=== PATIENT | male | born 1960 | race Hispanic/Latino ===

== ENCOUNTER 2020-06-08 08:26 | Outpatient (CLI) | payer OTHER ==
--- NOTE | 2020-06-08 09:20 | XRay Report ---
LEFT HAND 2 VIEW(S) INDICATION / CLINICAL INFORMATION: LT HAND PAIN COMPARISON: None available. FINDINGS: BONES / JOINT(S): No acute fracture or subluxation. No significant arthritis. SOFT TISSUES: No significant abnormality. ADDITIONAL FINDINGS: None. IMPRESSION: No acute osseous abnormality. Signer Name: Chris Wright MD Signed: 06/08/2020 9:15 AM Workstation Name: [id number]
--- NOTE | 2020-06-08 09:20 | XRay Report ---
Lumbar spine 3 views INDICATION: Low back pain. IMPRESSION: Multilevel discogenic and facet arthropathy throughout the mid and lower lumbar spine par ticularly at L5-S1 where there is mild to moderate bilateral neural foraminal stenosis. Signer Name: Sonu Sharp MD Signed: 06/08/2020 9:16 AM Workstation Name: [id number]
--- NOTE | 2020-06-08 09:20 | XRay Report ---
Pelvis with bilateral hips 3 views INDICATION: Bilateral hip pain IMPRESSION: No fracture or subluxation identified. Minimal to mild degenerative changes of both hips. Signer Name: Sonu Sharp MD Signed: 06/08/2020 9:16 AM Workstation Name: [id number]
== END 2020-06-08 08:27 | disposition home or self-care (01) ==
LOC: XRAY 08:26
PROVIDERS: ATTEND Internal Medicine
DX: M16.0 Bilateral primary osteoarthritis of hip (principal); M25.552 Pain in left hip; M25.551 Pain in right hip; M48.07 Spinal stenosis, lumbosacral region; M47.817 Spondylosis without myelopathy or radiculopathy, lumbosacral region
CPT/HCPCS: 72100; 73521

== ENCOUNTER 2020-08-26 12:18 | Emergency (ER) | payer SELFPAY ==
[2020-08-26 12:38] VITALS: BP 169/92
--- NOTE | 2020-08-26 13:00 | Emergency Department Report ---
Minor Respiratory - [facility] Chief Complaint: Upper Respiratory Infection Stated Complaint: POSS FLU Duration: 1 Day Pain Location: Throat Minor Respiratory: Yes Rhinorrhea, Yes Sore Throat, Yes Able to Tolerate Fluids, Yes Cough, Yes Fever Other History: 59-year-old male presents with a 1 day history of body aches, sore throat headache diarrhea and fatigue. Patient reports he is a start ed 1 day ago. 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 Patient states that he last saw cancer doctor was 3 months ago and he is followed at [facility] and's [facility] Dr. Quintero. Patient reports he has not had a Covid test. Patient last took ibuprofen about 1130. ED Review of Systems ROS: Stated complaint: POSS FLU Other details as noted in HPI ED Past Medical Hx - Past Medical History Previous Medical History?: Yes Hx Hypertension: Yes Hx Arthritis: Yes (osteoporosis) - Social History Smoking Status: Current Every Day Smoker (2/3 pack per day) Substance Use Type: Cocaine, Heroin, Marijuana, Methamphetamines - Medications Home Medications: Home Medications Medication Instructions Recorded Confirmed Last Taken Type lisinopriL [Zestril] 20 mg PO QDAY 07/20/19 07/20/19 Unknown History Amoxicillin [Amoxicillin TAB] 875 mg PO BID #14 tablet 08/26/20 Unknown Rx Azithromycin [Zithromax Z-IMELDA] 250 mg PO DAILY #6 tab 08/26/20 Unknown Rx Minor Respiratory Exam - Exam General: Vital signs noted. No distress. Alert and acting appropriately. HEENT: Yes Moist Mucous Membranes, No Pharyngeal Erythema, No Pharyngeal Exudates, No Rhinorrhea, No Conjuctival Injection, No Frontal Tenderness, No Maxillary Tenderness Neck: Yes Supple, No Adenopathy Lungs: Yes Good Air Exchange, No Wheezes, No Ronchi, No Stridor, No Cough, No Labored Respirations, No Retractions, No Use of Accessory Muscles, No Other Abnormal Lung Sounds Heart: Yes Regular, No Murmur Abdomen: Yes Normal Bowel Sounds, No Tenderness, No Peritoneal Signs Skin: No Rash, No Edema Neurologic: Alert and oriented, no deficits. Musculoskeletal: Unremarkable. ED Course Vital Signs 08/26/20 12:37 Temperature 98.4 F Pulse Rate 79 Respiratory 15 Rate Blood Pressure 169/92 O2 Sat by Pulse 97 Oximetry ED Medical Decision Making - Lab Data Result diagrams: 08/26/20 13:34 08/26/20 13:34 - Radiology Data Radiology results: report reviewed Patient: LIANA LONG MR#: [id number] : 1960 Acct:[id number] Age/Sex: 59 / M ADM Date: 08/26/20 Loc: ED Attending Dr: Ordering Physician: CHRISTAL DELAROSA Date of Service: 08/26/20 Procedure(s): XR chest routine 2V Accession Number(s): [id number] cc: CHRISTAL DELAROSA Fluoro Time In Minutes: CHEST 2 VIEWS INDICATION / CLINICAL INFORMATION: flu like sxs. FINDINGS: SUPPORT DEVICES: None. HEART / MEDIASTINUM: No significant abnormality. LUNGS / PLEURA: There is some increasing airspace density within the medial aspect of the right upper lung which was not seen on the prior exam on 07/18/2019. The left lung remains clear. Signer Name: Sonu Sharp MD Signed: 08/26/2020 1:26 PM Workstation Name: [id number] Transcribed By: BC Dictated By: Sonu Sharp MD Electronically Authenticated By: Sonu Sharp MD Signed Date/Time: 08/26/20 1326 DD/ 1324 TD/TT: - Medical Decision Making 59-year-old male presents with a 1 day history of body aches, sore throat headache diarrhea and fatigue. Patient reports he is a started 1 day ago. 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 Patient states that he last saw cancer doctor was 3 months ago and he is followed at [facility] and's [facility] Dr. Quintero. Patient reports he has not had a Covid test. Patient last took ibuprofen about 1130. Critical care attestation.: If time is entered above; I have spent that time in minutes in the direct care of this critically ill patient, excluding procedure time. ED Disposition Clinical Impression: Pneumonia Qualifiers: Pneumonia type: due to unspecified organism Laterality: right Lung location: middle lobe of lung Qualified Code(s): J18.9 - Pneumonia, unspecified organism Disposition: DC-01 TO HOME OR SELFCARE Is pt being admited?: No Does the pt Need Aspirin: No Condition: Stable Instructions: Bacterial Pneumonia (ED), Community-Acquired Pneumonia, Adult, [id number] Additional Instructions: X-ray shows concern for possible pneumonia. I would like for you to complete b oth of the antibiotics as prescribed. Increase your fluid intake Tylenol or ibuprofen for fevers and body aches and to follow-up with your primary care provider. Also recommend for you to get Covid testing. Prescriptions: Amoxicillin [Amoxicillin TAB] 875 mg PO BID #14 tablet Azithromycin [Zithromax Z-IMELDA] 250 mg PO DAILY #6 tab Referrals: [facility] [Provider Group] - 3-5 Days GAB IRBY MD [Staff Physician] - 3-5 Days PRIMARY CAREMD [Primary Care Provider] - 3-5 Days
--- NOTE | 2020-08-26 13:30 | XRay Report ---
CHEST 2 VIEWS INDICATION / CLINICAL INFORMATION: flu like sxs. FINDINGS: SUPPORT DEVICES: None. HEART / MEDIASTINUM: No significant abnormality. LUNGS / PLEURA: There is some increasing airspace density within the medial aspect of the right upper lung which was not seen on the prior exam on 07/18/2019. The left lung remains clear. Signer Name: Sonu Sharp MD Signed: 08/26/2020 1:26 PM Workstation Name: [id number]
[2020-08-26 14:14] LABS: Basophils % (Auto) 0.4 % (0.0-1.8); Eosinophils # (Auto) 0.2 K/mm3 (0.0-0.4); Hematocrit 28.2 % (35.5-45.6); Hemoglobin 9.4 gm/dl (11.8-15.2); Lymphocytes # (Auto) 1.4 K/mm3 (1.2-5.4); Lymphocytes % (Auto) 17.8 % (13.4-35.0); Mean Corpuscular HGB Conc 33 % (32-34); Mean Corpuscular Volume 95 fl (84-94); Monocytes # (Auto) 0.6 K/mm3 (0.0-0.8); Monocytes % (Auto) 7.7 % (0.0-7.3); Platelet Count 344 K/mm3 (140-440); Red Blood Count 2.98 M/mm3 (3.65-5.03); Red Cell Distribution Width 18.4 % (13.2-15.2)
[2020-08-26 14:37] LABS: Alanine Aminotransferase 7 units/L (7-56); Albumin 3.5 g/dL (3.9-5); Blood Urea Nitrogen 21 mg/dL (9-20); Calcium 8.5 mg/dL (8.4-10.2); Hemolysis Index 1
[2020-08-26 15:01] LABS: BUN/Creatinine Ratio 30
== END 2020-08-26 16:37 | disposition home or self-care (01) ==
LOC: ED 12:18
DX: J18.9 Pneumonia, unspecified organism (principal); I10 Essential (primary) hypertension; M19.90 Unspecified osteoarthritis, unspecified site; F12.90 Cannabis use, unspecified, uncomplicated; F14.90 Cocaine use, unspecified, uncomplicated; F15.90 Other stimulant use, unspecified, uncomplicated; F17.200 Nicotine dependence, unspecified, uncomplicated; F11.90 Opioid use, unspecified, uncomplicated; Z79.899 Other long term (current) drug therapy
CPT/HCPCS: 36415; 71046; 80053; 85025

== ENCOUNTER 2020-10-15 15:35 | Emergency (ER) | payer OTHER ==
--- NOTE | 2020-10-15 17:35 | Event Note ---
ED Screening Note ED Screening Note: hx of osteoarthritis and leukemia (in remission), HTN, PUD states he was supposed to have a iron infusion 3 weeks ago but due to monetary issues was unable +cough +headache +generalized body aches, generalized joint pain no fever no n/v +diarrhea no SOB no abd pain no allergies to meds This initial assessment/diagnostic orders/clinical plan/treatment(s) is/are subject to change based on patients health status, clinical progression and re- assessment by fellow clinical providers in the ED. Further treatment and workup at subsequent clinical providers discretion. Patient/guardian urged not to elope from the ED as their condition may be serious if not clinically assessed and managed. Initial orders include: labs, CXR
--- NOTE | 2020-10-15 18:01 | XRay Report ---
CHEST 2 VIEWS INDICATION / CLINICAL INFORMATION: cough. COMPARISON: Chest 2 views from 08/26/2020. FINDINGS: SUPPORT DEVICES: None. HEART / MEDIASTINUM: No significant abnormality. LUNGS / PLEURA: The recently described right upper lobe airspace opacity has improved. The lungs are otherwise clear. No significant pleural effusion. No pneumothorax. ADDITIONAL FINDINGS: No significant additional findings. IMPRESSION: Improved aeration of the right upper lobe without other significant abnormalities. Signer Name: Lv Florence MD Signed: 10/15/2020 5:57 PM Workstation Name: [id number]
[2020-10-15 18:22] LABS: Basophils % (Auto) 0.6 % (0.0-1.8); Eosinophils # (Auto) 0.1 K/mm3 (0.0-0.4); Eosinophils % (Auto) 1.6 % (0.0-4.3); Hematocrit 28.7 % (35.5-45.6); Hemoglobin 9.6 gm/dl (11.8-15.2); Lymphocytes # (Auto) 1.4 K/mm3 (1.2-5.4); Lymphocytes % (Auto) 24.2 % (13.4-35.0); Mean Corpuscular HGB Conc 34 % (32-34); Mean Corpuscular Volume 94 fl (84-94); Monocytes # (Auto) 0.3 K/mm3 (0.0-0.8); Platelet Count 413 K/mm3 (140-440); Red Blood Count 3.05 M/mm3 (3.65-5.03); Red Cell Distribution Width 19.6 % (13.2-15.2)
[2020-10-15 18:28] LABS: Alanine Aminotransferase 15 units/L (7-56); Albumin 4.2 g/dL (3.9-5); Blood Urea Nitrogen 22 mg/dL (9-20); Calcium 8.7 mg/dL (8.4-10.2); Hemolysis Index 0
[2020-10-15 18:41] LABS: BUN/Creatinine Ratio 31
[2020-10-15 21:32] VITALS: BP 136/93
--- NOTE | 2020-10-15 22:03 | Emergency Department Report ---
ED General Adult HPI - General Chief complaint: Pain General Stated complaint: COUGH/BODY ACHES Time Seen by Provider: 10/15/20 17:34 Source: patient Mode of arrival: Ambulatory Limitations: No Limitations - History of Present Illness Initial comments: 60-year-old male, history of osteoarthritis, CML leukemia, hypertension, presents to ED with joint pain. Patient states he is having pain in all of his joints all over his body. Patient states he is scheduled to see her [employer] next month. Patient also thinks it may be due to the fact that lashay hendricks was was having iron infusion 3 weeks ago but was unable to secondary to his finances. Patient denies any fever. Patient also reports a mild cough, denies any shortness of breath. -: unknown Radiation: non-radiation Severity scale (0 -10): 0 Quality: aching Consistency: intermittent Improves with: none Worsens with: none Associated Symptoms: cough. denies: fever/chills, nausea/vomiting, shortness of breath - Related Data Home Medications Medication Instructions Recorded Confirmed Last Taken lisinopriL [Zestril] 20 mg PO QDAY 07/20/19 07/20/19 Unknown Previous Rx's Medication Instructions Recorded Last Taken Type Amoxicillin [Amoxicillin TAB] 875 mg PO BID #14 tablet 08/26/20 Unknown Rx Azithromycin [Zithromax Z-IMELDA] 250 mg PO DAILY #6 tab 08/26/20 Unknown Rx Naproxen [Naprosyn] 500 mg PO BID #20 tablet 10/15/20 Unknown Rx Allergies Allergy/AdvReac Type Severity Reaction Status Date / Time No Known Allergies Allergy Verified 10/15/20 17:00 ED Review of Systems ROS: Stated complaint: COUGH/BODY ACHES Other details as noted in HPI Comment: All other systems reviewed and negative Constitutional: denies: chills, fever Respiratory: cough. denies: shortness of breath Gastrointestinal: denies: nausea, vomiting Musculoskeletal: arthralgia ED Past Medical Hx - Past Medical History Hx Hypertension: Yes Hx of Cancer: Yes (LEUKEMINA) Hx Arthritis: Yes (osteoporosis) - Social History Smoking Status: Current Every Day Smoker (2/3 pack per day) Substance Use Type: Cocaine, Heroin, Marijuana, Methamphetamines - Medications Home Medications: Home Medications Medication Instructions Recorded Confirmed Last Taken Type lisinopriL [Zestril] 20 mg PO QDAY 07/20/19 07/20/19 Unknown History Amoxicillin [Amoxicillin TAB] 875 mg PO BID #14 tablet 08/26/20 Unknown Rx Azithromycin [Zithromax Z-IMELDA] 250 mg PO DAILY #6 tab 08/26/20 Unknown Rx Naproxen [Naprosyn] 500 mg PO BID #20 tablet 10/15/20 Unknown Rx ED Physical Exam - General Limitations: No Limitations General appearance: alert, in no apparent distress - Head Head exam: Present: atraumatic, normocephalic - Eye Eye exam: Present: normal appearance, EOMI - ENT ENT exam: Present: mucous membranes moist - Neck Neck exam: Present: normal inspection - Respiratory Respiratory exam: Present: normal lung sounds bilaterally. Absent: respiratory distress - Cardiovascular Cardiovascular Exam: Present: regular rate, normal rhythm - GI/Abdominal GI/Abdominal exam: Present: soft. Absent: distended, tenderness - Extremities Exam Extremities exam: Present: normal inspection. Absent: joint swelling - Neurological Exam Neurological exam: Present: alert, oriented X3 - Psychiatric Psychiatric exam: Present: normal affect, normal mood - Skin Skin exam: Present: warm, dry, intact, normal color. Absent: rash, erythema ED Course Vital Signs 10/15/20 10/15/20 10/15/20 17:04 21:32 22:22 Temperature 98.2 F Pulse Rate 66 69 Respiratory 18 18 18 Rate Blood Pressure 168/90 Blood Pressure 136/93 [Left] O2 Sat by Pulse 100 100 Oximetry ED Medical Decision Making - Lab Data Result diagrams: 10/15/20 17:53 10/15/20 17:53 - Medical Decision Making 60-year-old male presents to ED with complaint of diffuse joint pain. Patient reports history of arthritis. Patient also requesting to have iron infusions done here in the ED as he missed his usual infusion 3 weeks ago. Advised patient that transfusions are not done emergently. Hemoglobin is 9.6, patient does not meet criteria for blood transfusion either. Patient reports he will be following up with his [employer] next month. Patient has no significantly swollen or erythematous joints on exam. Patient will be discharged at this time. Return precautions given. Critical care attestation.: If time is entered above; I have spent that time in minutes in the direct care of this critically ill patient, excluding procedure time. ED Disposition Clinical Impression: Arthralgia, Cough Disposition: DC- TO HOME OR SELFCARE Is pt being admited?: No Condition: Stable Instructions: Joint Pain, [id number] Prescriptions: Naproxen [Naprosyn] 500 mg PO BID #20 tablet Referrals: PRIMARY CARE, [Primary Care Provider] - 3-5 Days Forms: Work/School Release Form(ED) Time of Disposition: 22:02
== END 2020-10-15 22:23 | disposition home or self-care (01) ==
LOC: ED 15:35
DX: M25.50 Pain in unspecified joint (principal); R05 Cough; I10 Essential (primary) hypertension; F17.200 Nicotine dependence, unspecified, uncomplicated; F14.10 Cocaine abuse, uncomplicated; Z79.899 Other long term (current) drug therapy
CPT/HCPCS: 36415; 71046; 80053; 82550; 85025; 99283

== ENCOUNTER 2020-11-01 21:22 | Emergency (ER) | payer OTHER ==
--- NOTE | 2020-11-01 23:10 | XRay Report ---
CHEST PA AND LATERAL VIEWS INDICATION: sob, cough. COMPARISON: 10/15/2020 FINDINGS: Support devices: None. Heart: Within normal limits. Lungs/Pleura: No acute pulmonary or pleural findings. Lungs remain hyperinflated. IMPRESSION: 1. No significant change. Signer Name: Mau Devlin MD Signed: 11/01/2020 11:05 PM Workstation Name: [id number]
--- NOTE | 2020-11-02 01:30 | Emergency Department Report ---
ED General Adult HPI - General Chief complaint: Upper Respiratory Infection Stated complaint: CONJESTION/BODY ACHES Time Seen by Provider: 11/02/20 01:00 Source: patient Mode of arrival: Ambulatory Limitations: No Limitations - History of Present Illness Initial comments: Patient is a 60-year-old male with a history of leukemia. Who presents for head and chest congestion x3 days. Patient denies shortness of breath does endorse productive cough with yellow-green , and sinus and ear pressure. Symptoms are exacerbated by activity and movement. Symptoms are relieved by nothing tried. There is been no fever or chills. No nausea or vomiting. Patient is tolerating p.o. intake. Patient is a 40+ pack year smoker - Related Data Home Medications Medication Instructions Recorded Confirmed Last Taken lisinopriL [Zestril] 20 mg PO QDAY 07/20/19 07/20/19 Unknown Previous Rx's Medication Instructions Recorded Last Taken Type Amoxicillin [Amoxicillin TAB] 875 mg PO BID #14 tablet 08/26/20 Unknown Rx Azithromycin [Zithromax Z-IMELDA] 250 mg PO DAILY #6 tab 08/26/20 Unknown Rx Naproxen [Naprosyn] 500 mg PO BID #20 tablet 10/15/20 Unknown Rx Acetaminophen/Codeine [Tylenol 1 tab PO Q6H PRN #12 tab 11/02/20 Unknown Rx /Codeine # 3 tab] Albuterol Mdi (or & Nicu Only) 2 puff IH QID PRN #8.5 gram 11/02/20 Unknown Rx [ProAir HFA Inhaler] Azithromycin 500 mg PO DAILY #5 tablet 11/02/20 Unknown Rx Azithromycin [Zithromax TAB] 500 mg PO QDAY #5 tablet 11/02/20 Unknown Rx Allergies Allergy/AdvReac Type Severity Reaction Status Date / Time No Known Allergies Allergy Verified 10/15/20 17:00 ED Review of Systems ROS: Stated complaint: CONJESTION/BODY ACHES Other details as noted in HPI Constitutional: malaise Eyes: denies: eye pain, eye discharge, vision change ENT: ear pain, congestion Respiratory: cough. denies: shortness of breath, wheezing Cardiovascular: denies: chest pain, palpitations Endocrine: no symptoms reported Gastrointestinal: denies: abdominal pain, nausea, vomiting, diarrhea Genitourinary: denies: urgency, dysuria, frequency, hematuria Musculoskeletal: denies: back pain, joint swelling, arthralgia Skin: denies: rash, lesions Neurological: headache. denies: weakness, numbness, paresthesias, vertigo Psychiatric: denies: anxiety, depression Hematological/Lymphatic: denies: easy bleeding, easy bruising ED Past Medical Hx - Past Medical History Previous Medical History?: Yes Hx Hypertension: Yes Hx Arthritis: Yes (osteoporosis) Additional medical history: luekemia - Social History Smoking Status: Never Smoker Substance Use Type: None - Medications Home Medications: Home Medications Medication Instructions Recorded Confirmed Last Taken Type lisinopriL [Zestril] 20 mg PO QDAY 07/20/19 07/20/19 Unknown History Amoxicillin [Amoxicillin TAB] 875 mg PO BID #14 tablet 08/26/20 Unknown Rx Azithromycin [Zithromax Z-IMELDA] 250 mg PO DAILY #6 tab 08/26/20 Unknown Rx Naproxen [Naprosyn] 500 mg PO BID #20 tablet 10/15/20 Unknown Rx Acetaminophen/Codeine [Tylenol 1 tab PO Q6H PRN #12 tab 11/02/20 Unknown Rx /Codeine # 3 tab] Albuterol Mdi (or & Nicu Only) 2 puff IH QID PRN #8.5 gram 11/02/20 Unknown Rx [ProAir HFA Inhaler] Azithromycin 500 mg PO DAILY #5 tablet 11/02/20 Unknown Rx Azithromycin [Zithromax TAB] 500 mg PO QDAY #5 tablet 11/02/20 Unknown Rx ED Physical Exam - General Limitations: No Limitations General appearance: alert - Head Head exam: Present: normocephalic, normal inspection - Eye Eye exam: Present: normal appearance, PERRL, EOMI Pupils: Present: normal accommodation - ENT ENT exam: Present: mucous membranes moist - Expanded ENT Exam Expanded Ear exam: Present: normal external inspection Mouth exam: Absent: trismus Teeth exam: Present: normal inspection Throat exam: Positive: tonsillar erythema. Negative: tonsillomegaly, tonsillar exudate, R peritonsillar mass, L peritonsillar mass - Neck Neck exam: Present: normal inspection, full ROM. Absent: tenderness, lymphadenopathy - Respiratory Respiratory exam: Present: normal lung sounds bilaterally, wheezes. Absent: respiratory distress, rales, rhonchi, stridor, chest wall tenderness, prolonged expiratory - Cardiovascular Cardiovascular Exam: Present: regular rate, normal heart sounds - GI/Abdominal GI/Abdominal exam: Present: soft, normal bowel sounds. Absent: distended, tenderness, guarding, rebound, rigid, bruit, hernia, other - Rectal Rectal exam: Present: deferred - exam: Present: other (deferred ) External exam: Present: normal external exam - Extremities Exam Extremities exam: Present: normal inspection, full ROM, normal capillary refill. Absent: tenderness - Back Exam Back exam: Present: normal inspection, full ROM. Absent: tenderness, CVA tenderness (R), CVA tenderness (L), vertebral tenderness - Neurological Exam Neurological exam: Present: alert - Psychiatric Psychiatric exam: Present: normal affect, normal mood - Skin Skin exam: Present: warm, dry, intact, normal color. Absent: rash ED Course Vital Signs 11/01/20 22:15 Temperature 98.0 F Pulse Rate 77 Respiratory 17 Rate Blood Pressure 182/96 O2 Sat by Pulse 99 Oximetry ED Medical Decision Making - Radiology Data Radiology results: report reviewed, image reviewed Ordering Physician: MAIKOL MEEHAN MD Date of Service: 11/01/20 Procedure(s): XR chest routine 2V Accession Number(s): [id number] cc: ED MD ZORAN Fluoro Time In Minutes: CHEST PA AND LATERAL VIEWS INDICATION: sob, cough. COMPARISON: 10/15/2020 FINDINGS: Support devices: None. Heart: Within normal limits. Lungs/Pleura: No acute pulmonary or pleural findings. Lungs remain hyperinflated. IMPRESSION: 1. No significant change. Signer Name: Mau Devlin MD Signed: 11/01/2020 11:05 PM Workstation Name: [id number] Transcribed By: LAKIA Dictated By: Mau Devlin MD Electronically Authenticated By: Mau Devlin MD Signed Date/Time: 11/01/202304 DD/ 04 TD/TT: - Medical Decision Making Chest x-ray no opacities no infiltrate. This is likely bronchitis as symptoms have improved with medications given in ED. There is no fever or chills. Patient is tolerating p.o. intake. Patient is amatory without acute distress or shortness of breath. Plan DC to home with prescriptions. Follow-up with PCP in 2 days. Patient verbalized agreement and understanding with discharge plan. Patient DC'd home in stable condition at this time Critical care attestation.: If time is entered above; I have spent that time in minutes in the direct care of this critically ill patient, excluding procedure time. ED Disposition Clinical Impression: Bronchitis URI (upper respiratory infection) Qualifiers: URI type: unspecified URI Qualified Code(s): J06.9 - Acute upper respiratory infection, unspecified Disposition: DC-01 TO HOME OR SELFCARE Is pt being admited?: No Does the pt Need Aspirin: No Condition: Stable Instructions: Chronic Bronchitis (ED), Viral Respiratory Infection, Xaon-Zz-Inkg Prescriptions: Azithromycin 500 mg PO DAILY #5 tablet Albuterol Mdi (or & Nicu Only) [ProAir HFA Inhaler] 2 puff IH QID PRN #8.5 gram PRN Reason: Shortness Of Breath Acetaminophen/Codeine [Tylenol /Codeine # 3 tab] 1 tab PO Q6H PRN #12 tab PRN Reason: pain cough Azithromycin [Zithromax TAB] 500 mg PO QDAY #5 tablet Referrals: KAMALA BOWERS MD [Staff Physician] - 3-5 Days Forms: Work/School Release Form(ED) Time of Disposition: 01:59
[2020-11-02] MEDS ORDERED: predniSONE 20 MG TAB PO ONE (01:31)
[2020-11-02] MEDS ORDERED: ALBUTEROL 2.5 MG/3 ML NEBU IH ONE (01:31)
[2020-11-02] MEDS ORDERED: AZITHROMYCIN 250 MG TAB PO ONE (01:31)
[2020-11-02] MEDS ORDERED: ACETAMINOPHEN W/CODEINE 300-30 MG TAB PO ONE (01:31)
[2020-11-02] MEDS ORDERED: diphenhydrAMINE 25 MG CAP PO ONE (01:32)
[2020-11-02 03:47] VITALS: BP 180/89
== END 2020-11-02 02:22 | disposition home or self-care (01) ==
LOC: ED 21:22
DX: J06.9 Acute upper respiratory infection, unspecified (principal); J40 Bronchitis, not specified as acute or chronic; I10 Essential (primary) hypertension; M19.91 Primary osteoarthritis, unspecified site; Z79.2 Long term (current) use of antibiotics; Z79.899 Other long term (current) drug therapy
CPT/HCPCS: 71046; 94640; 99283; J7512; 94644

== ENCOUNTER 2021-06-20 11:03 | Emergency (ER) | payer SELFPAY ==
[2021-06-20] MEDS ORDERED: ONDANSETRON 4 MG/2 ML INJ IV ONE (12:18)
[2021-06-20] MEDS ORDERED: NALOXONE 2 MG/2 ML INJ ONE (12:50)
[2021-06-20] MEDS ORDERED: NALOXONE 2 MG/2 ML INJ IV ONE (12:54)
[2021-06-20 14:04] LABS: Basophils % (Auto) 0.2 % (0.0-1.8); Eosinophils % (Auto) 0.3 % (0.0-4.3); Hematocrit 30.7 % (35.5-45.6); Hemoglobin 9.8 gm/dl (11.8-15.2); Lymphocytes # (Auto) 0.6 K/mm3 (1.2-5.4); Lymphocytes % (Auto) 4.8 % (13.4-35.0); Mean Corpuscular HGB Conc 32 % (32-34); Mean Corpuscular Volume 97 fl (84-94); Monocytes # (Auto) 0.6 K/mm3 (0.0-0.8); Monocytes % (Auto) 4.8 % (0.0-7.3); Platelet Count 353 K/mm3 (140-440); Red Blood Count 3.17 M/mm3 (3.65-5.03); Red Cell Distribution Width 16.9 % (13.2-15.2)
[2021-06-20 14:10] LABS: BUN/Creatinine Ratio 36; Blood Urea Nitrogen 25 mg/dL (9-20); Calcium 8.4 mg/dL (8.4-10.2); Hemolysis Index 3
--- NOTE | 2021-06-20 14:47 | Emergency Department Report ---
History of Present Illness - General Chief Complaint: Overdose Stated Complaint: OVERDOSE Time Seen by Provider: 06/20/21 12:15 Source: patient, EMS Mode of arrival: Stretcher Limitations: Altered Mental Status - History of Present Illness Initial Comments: Patient is a 60-year-old male who is presenting after a heroin and Percocet overdose. Patient states he was recreationally trying to get high. He was found unconscious at work. Given a small dose of Narcan which did wake him up slightly although the patient is still somewhat lethargic but answering questions after there is speaking loudly of tach making him on the shoulder. Denies any suicidal homicidal ideations. - Related Data Home Medications Medication Instructions Recorded Confirmed Last Taken lisinopriL [Zestril] 20 mg PO QDAY 07/20/19 07/20/19 Unknown Previous Rx's Medication Instructions Recorded Last Taken Type Amoxicillin [Amoxicillin TAB] 875 mg PO BID #14 tablet 08/26/20 Unknown Rx Azithromycin [Zithromax Z-IMELDA] 250 mg PO DAILY #6 tab 08/26/20 Unknown Rx Naproxen [Naprosyn] 500 mg PO BID #20 tablet 10/15/20 Unknown Rx Acetaminophen/Codeine [Tylenol 1 tab PO Q6H PRN #12 tab 11/02/20 Unknown Rx /Codeine # 3 tab] Albuterol Mdi (or & Nicu Only) 2 puff IH QID PRN #8.5 gram 11/02/20 Unknown Rx [ProAir HFA Inhaler] Azithromycin 500 mg PO DAILY #5 tablet 11/02/20 Unknown Rx Azithromycin [Zithromax TAB] 500 mg PO QDAY #5 tablet 11/02/20 Unknown Rx Allergies Allergy/AdvReac Type Severity Reaction Status Date / Time No Known Allergies Allergy Verified 10/15/20 17:00 ED Review of Systems ROS: Stated complaint: OVERDOSE Other details as noted in HPI Comment: All other systems reviewed and negative ED Past Medical Hx - Past Medical History Hx Hypertension: Yes Hx Arthritis: Yes (osteoporosis) Additional medical history: luekemia - Social History Smoking Status: Never Smoker Substance Use Type: None - Medications Home Medications: Home Medications Medication Instructions Recorded Confirmed Last Taken Type lisinopriL [Zestril] 20 mg PO QDAY 07/20/19 07/20/19 Unknown History Amoxicillin [Amoxicillin TAB] 875 mg PO BID #14 tablet 08/26/20 Unknown Rx Azithromycin [Zithromax Z-IMELDA] 250 mg PO DAILY #6 tab 08/26/20 Unknown Rx Naproxen [Naprosyn] 500 mg PO BID #20 tablet 10/15/20 Unknown Rx Acetaminophen/Codeine [Tylenol 1 tab PO Q6H PRN #12 tab 11/02/20 Unknown Rx /Codeine # 3 tab] Albuterol Mdi (or & Nicu Only) 2 puff IH QID PRN #8.5 gram 11/02/20 Unknown Rx [ProAir HFA Inhaler] Azithromycin 500 mg PO DAILY #5 tablet 11/02/20 Unknown Rx Azithromycin [Zithromax TAB] 500 mg PO QDAY #5 tablet 11/02/20 Unknown Rx ED Physical Exam - General Limitations: Altered Mental Status General appearance: alert, in no apparent distress, lethargic - Head Head exam: Present: atraumatic, normocephalic - Eye Eye exam: Present: normal appearance - ENT ENT exam: Present: mucous membranes moist - Neck Neck exam: Present: normal inspection - Respiratory Respiratory exam: Present: normal lung sounds bilaterally. Absent: respiratory distress, wheezes, rales - Cardiovascular Cardiovascular Exam: Present: regular rate, normal rhythm, normal heart sounds. Absent: systolic murmur, diastolic murmur, rubs, gallop - GI/Abdominal GI/Abdominal exam: Present: soft, normal bowel sounds. Absent: distended, tenderness, guarding, rebound - Rectal Rectal exam: Present: deferred - Extremities Exam Extremities exam: Present: normal inspection - Back Exam Back exam: Present: normal inspection - Neurological Exam Neurological exam: Present: alert, oriented X3 - Psychiatric Psychiatric exam: Present: normal affect, normal mood - Skin Skin exam: Present: warm, dry, intact, normal color. Absent: rash ED Course Vital Signs 06/20/21 11:05 Temperature 98.5 F Pulse Rate 96 H Respiratory 16 Rate Blood Pressure 172/84 [Left] O2 Sat by Pulse 98 Oximetry ED Medical Decision Making - Lab Data Result diagrams: 06/20/21 13:25 06/20/21 13:25 Lab Results 06/20/21 06/20/21 06/20/21 Range/Units 13:25 13:25 13:25 WBC 12.0 H (4.5-11.0) K/mm3 RBC 3.17 L (3.65-5.03) M/mm3 Hgb 9.8 L (11.8-15.2) gm/dl Hct 30.7 L (35.5-45.6) % MCV 97 H (84-94) fl MCH 31 (28-32) pg MCHC 32 (32-34) % RDW 16.9 H (13.2-15.2) % Plt Count 353 (140-440) K/mm3 Lymph % (Auto) 4.8 L (13.4-35.0) % Quay % (Auto) 4.8 (0.0-7.3) % Eos % (Auto) 0.3 (0.0-4.3) % Baso % (Auto) 0.2 (0.0-1.8) % Lymph # (Auto) 0.6 L (1.2-5.4) K/mm3 Quay # (Auto) 0.6 (0.0-0.8) K/mm3 Eos # (Auto) 0.0 (0.0-0.4) K/mm3 Baso # (Auto) 0.0 (0.0-0.1) K/mm3 Seg Neutrophils % 89.9 H (40.0-70.0) % Seg Neutrophils # 10.8 H (1.8-7.7) K/mm3 Sodium 143 (137-145) mmol/L Potassium 4.8 (3.6-5.0) mmol/L Chloride 107.4 H (98-107) mmol/L Carbon Dioxide 22 (22-30) mmol/L Anion Gap 18 mmol/L BUN 25 H (9-20) mg/dL Creatinine 0.7 L (0.8-1.3) mg/dL Estimated GFR > 60 ml/min BUN/Creatinine Ratio 36 % Glucose 256 H (75-100) mg/dL POC Glucose (70-105) mg/dL Calcium 8.4 (8.4-10.2) mg/dL Acetaminophen 5.0 L (10.0-30.0) ug/mL Plasma/Serum Alcohol (0-0.07) % 06/20/21 06/20/21 Range/Units 13:25 14:15 WBC (4.5-11.0) K/mm3 RBC (3.65-5.03) M/mm3 Hgb (11.8-15.2) gm/dl Hct (35.5-45.6) % MCV (84-94) fl MCH (28-32) pg MCHC (32-34) % RDW (13.2-15.2) % Plt Count (140-440) K/mm3 Lymph % (Auto) (13.4-35.0) % Quay % (Auto) (0.0-7.3) % Eos % (Auto) (0.0-4.3) % Baso % (Auto) (0.0-1.8) % Lymph # (Auto) (1.2-5.4) K/mm3 Quay # (Auto) (0.0-0.8) K/mm3 Eos # (Auto) (0.0-0.4) K/mm3 Baso # (Auto) (0.0-0.1) K/mm3 Seg Neutrophils % (40.0-70.0) % Seg Neutrophils # (1.8-7.7) K/mm3 Sodium (137-145) mmol/L Potassium (3.6-5.0) mmol/L Chloride (98-107) mmol/L Carbon Dioxide (22-30) mmol/L Anion Gap mmol/L BUN (9-20) mg/dL Creatinine (0.8-1.3) mg/dL Estimated GFR ml/min BUN/Creatinine Ratio % Glucose (75-100) mg/dL POC Glucose 167 H (70-105) mg/dL Calcium (8.4-10.2) mg/dL Acetaminophen (10.0-30.0) ug/mL Plasma/Serum Alcohol < 0.01 (0-0.07) % - Medical Decision Making Patient did have 1 episode of several seconds of apnea that was corrected after firmly tapping the patient on the chest. Patient did desat briefly during this episode into the upper 70s. Patient given 2 mg of Narcan which did induce vomiting and the patient was lucid ever since. Monitor the patient for several hours and patient will be stable for discharge. Critical care attestation.: If time is entered above; I have spent that time in minutes in the direct care of this critically ill patient, excluding procedure time. ED Disposition Clinical Impression: Opiate overdose Qualifiers: Encounter type: initial encounter Injury intent: accidental or unintentional Qualified Code(s): T40.601A - Poisoning by unspecified narcotics, accidental (unintentional), initial encounter Is pt being admited?: No Does the pt Need Aspirin: No Condition: Stable Referrals: PRIMARY CARE, [Primary Care Provider] - 3-5 Days
[2021-06-20 16:51] VITALS: BP 159/87
== END 2021-06-20 19:13 | disposition home or self-care (01) ==
LOC: ED 11:03
DX: T40.1X1A Poisoning by heroin, accidental (unintentional), initial encounter (principal); T39.1X1A Poisoning by 4-Aminophenol derivatives, accidental (unintentional), initial encounter; I10 Essential (primary) hypertension; J45.909 Unspecified asthma, uncomplicated; Y92.89 Other specified places as the place of occurrence of the external cause
CPT/HCPCS: 36415; 80048; 82962; 85025; 96374; 96375; 99283; J2310; 80320; G0480